=== PATIENT | male | born 1940 | race Caucasian/White ===

== ENCOUNTER 2019-04-08 13:05 | Outpatient (RCR) | payer MEDICARE, OTHER, SELFPAY | END 2019-07-07 23:59 | disposition home or self-care (01) | LOC: CHSSENLIFE 13:05 | PROVIDERS: Visit Provider Psychiatry & Neurology Psychiatry | DX: F33.2 Major depressive disorder, recurrent severe without psychotic features (principal); F41.9 Anxiety disorder, unspecified; F06.0 Psychotic disorder with hallucinations due to known physiological condition; F02.80 Dementia in other diseases classified elsewhere, unspecified severity, without behavioral disturbance, psychotic disturbance, mood disturbance, and anxiety | CPT/HCPCS: 90792; 90832; 90837; 90853; 99214; G0463 ==

== ENCOUNTER 2019-07-08 15:11 | Outpatient (RCR) | payer MEDICARE, OTHER, SELFPAY | END 2019-07-21 15:10 | disposition home or self-care (01) | LOC: CHSSENLIFE 15:11 | PROVIDERS: Visit Provider Psychiatry & Neurology Psychiatry | DX: F33.2 Major depressive disorder, recurrent severe without psychotic features (principal); F41.9 Anxiety disorder, unspecified; F06.0 Psychotic disorder with hallucinations due to known physiological condition; F02.80 Dementia in other diseases classified elsewhere, unspecified severity, without behavioral disturbance, psychotic disturbance, mood disturbance, and anxiety | CPT/HCPCS: 90853; 99214; G0463 ==